=== PATIENT | male | born 1950 | race Caucasian/White ===

== ENCOUNTER 2016-08-11 15:50 | Emergency (ER) | payer MEDICAID ==
[2016-08-11] MEDS ORDERED: IOPAMIDOL 370 (76%) 100 ML VIAL IV ONE (15:51)
[2016-08-11] MEDS ORDERED: ALBUTEROL/IPRATROPIUM 2.5/0.5 MG 3 ML/EACH DOSE ONE (15:54)
[2016-08-11] MEDS ORDERED: ALBUTEROL SULFATE 5MG/ML INHALANT 20 ML BOT ONE (16:02)
[2016-08-11] MEDS ORDERED: ASPIRIN CHEWTAB 81 MG TABLET ONE (16:10)
[2016-08-11 16:28] LABS: ABSOLUTE NEUTROPHIL COUNT 5.5 K/mm3 (1.8-7.7); BASO % 0.3 % (0.2-1.0); EOS # 0.2 (0.0-0.5); EOS % 1.7 % (0.9-2.9); HEMATOCRIT 48.8 % (32.0-52.0); HEMOGLOBIN 15.7 gm/l (14.0-18.0); IMM NEUT% 0.2 % (0-1); LYMPH # 2.4 (1.0-4.8); LYMPH % 27.3 % (15-45); MEAN CELL VOLUME 88.9 fl (80.0-94.0); MEAN CORPUSCULAR HEMOGLOBIN 28.6 pg (27.0-31.0); MEAN CORPUSCULAR HGB CONC 32.2 g/dl (33.0-37.0); MEAN PLATELET VOLUME 9.4 fl (7.4-10.4); MONO # 0.7 (0.0-0.8); NEUT % 62.5 % (43-75); PLATELET COUNT 333 K/mm3 (130-400); RED CELL DISTRIBUTION WIDTH 13.2 % (11.5-14.5)
--- NOTE | 2016-08-11 16:43 | RAD ---
CHEST-AP BEDSIDE COMPARISON: None HISTORY: Shortness of breath FINDINGS: Views: Frontal chest. Lungs: 17 x 12 cm loculated pneumothorax in the base of the left lung. Pleural surface visible in the left lung apex, most likely representing a second site of loculated pneumothorax. Heart and vessels: Normal Trachea and bronchi: Normal Mediastinum and jocelyne: Normal Costophrenic sulci: Normal Chest wall and bones: Normal Upper abdomen: Normal. IMPRESSION: 1. 17 x 12 cm loculated pneumothorax in the base of the left lung. Smaller pneumothorax suspected in the apex of the left lung. Critical results discussed with Luis Francis DO 08/11/2016 at 16:25
[2016-08-11 16:47] LABS: TROPONIN I < 0.01 ng/ml (0.0-0.06)
[2016-08-11 16:50] LABS: CKMB ISOENZYME 3.5 ng/ml (0.6-6.3)
--- NOTE | 2016-08-11 17:01 | CT ---
CTA CHEST FOR PE COMPARISON: Chest one view, 08/11/2016 HISTORY: Shortness of breath. Loculated pneumothorax on the left. Technique: Intravenous injection 80 mL [id number]-[id number]. Using a [employer] Aquilion [address] scanner, following a CT angiogram protocol, images obtained through the thorax. Under concurrent supervision and interpretation, requiring a separate 3-D workstation, the technologist created 3-D CT angiograms. An automated dose reduction technique was used to minimize patient radiation dose. Dose information: CTDIvol (mGy): 7.70, 6.25, 212.20, 8.30 DLP(mGycm): 455.40 FINDINGS: Pulmonary arteries and veins: Excellent contrast opacification. No pulmonary embolism. Aorta: Normal Heart and coronary arteries: Normal. Lungs: Severe emphysema with a 5.1 and 8.7 mm noncalcified nodules in the right lower lobe. Atelectasis of the left lower lobe, surrounded by a massive multiloculated pneumothorax that surrounds the entire left lung and causes some tension on the mediastinum. Trachea and bronchi: Normal. Mediastinum and jocelyne: Mildly displaced to the right by the left pneumothorax. Pleura and pericardium: Normal. Chest wall: Normal. Spine: No acute finding. Old compression fracture of L1. Upper abdomen: Simple cysts in the liver and the right kidney. 3-D CT angiogram: Normal. IMPRESSION: 1. Severe emphysema of both lungs with massive multiloculated left pneumothorax causing some mass effect or tension upon the mediastinum. There is collapse of the left lower lobe. 2. There are 2 nodules in the right lower lobe, 5.1 and 8.7 mm. 3. Incidental findings include simple cysts in the liver and the right kidney, and an old compression fracture of L1. The results were discussed with Luis Francis DO 08/11/2016 at 16:57
[2016-08-11 17:03] LABS: ALB/GLOB RATIO 1.3 (>1.0); CALCIUM 9.5 mg/dL (8.6-10.3)
== END 2016-08-11 18:45 | disposition short-term general hospital (02) ==
LOC: ED 15:50
DX: J44.9 Chronic obstructive pulmonary disease, unspecified (principal); F17.210 Nicotine dependence, cigarettes, uncomplicated
CPT/HCPCS: 85025; 82553; 87040; 80053; 84484; 71010; 71275; 94640; 99284; 36415; 93005; 99285; A9270; Q9967